=== PATIENT | female | born 1970 | race Caucasian/White ===

== ENCOUNTER 2022-07-23 16:05 | Outpatient (CLI) | payer MEDICARE ==
[2022-07-23 16:47] LABS: Hemoglobin 15.8 g/dL (12.0-15.5); Mean Corpuscular HGB CONC 34.2 g/dL (32.0-36.0); Mean Corpuscular Hemoglobin 33.9 pg (27.0-33.0); Mean Corpuscular Volume 99.1 fl (81.6-98.3); Mean Platelet Volume 10.6 fl (7.4-10.4); Platelet Count 241 10x3/uL (150-450); Red Blood Cell (RBC) Count 4.66 10x6/uL (3.90-5.03); White Blood Cell (WBC) Count 7.4 10x3/uL (3.5-10.5)
[2022-07-23 17:36] LABS: BHCG - Serum POSITIVE (NEGATIVE); Pregs Control Background? CLEAR/WHITE (CLR/WHITE); Pregs Control Bar Appear? YES (CONTROL BAR)
== END 2022-07-23 16:06 | disposition home or self-care (01) ==
LOC: CSHLAB 16:05
PROVIDERS: ATTEND Student in an Organized Health Care Education/Training Program
DX: Z01.812 Encounter for preprocedural laboratory examination (principal); N87.9 Dysplasia of cervix uteri, unspecified
CPT/HCPCS: 84703; 85027; 86850; 86900; 86901

== ENCOUNTER 2022-07-28 09:08 | Day surgery (SDC) | payer MEDICARE ==
[2022-07-23 12:22] VITALS: BMI 23.5
[2022-07-23 16:47] LABS: Hemoglobin 15.8 g/dL (12.0-15.5); Mean Corpuscular HGB CONC 34.2 g/dL (32.0-36.0); Mean Corpuscular Hemoglobin 33.9 pg (27.0-33.0); Mean Corpuscular Volume 99.1 fl (81.6-98.3); Mean Platelet Volume 10.6 fl (7.4-10.4); Platelet Count 241 10x3/uL (150-450); Red Blood Cell (RBC) Count 4.66 10x6/uL (3.90-5.03); White Blood Cell (WBC) Count 7.4 10x3/uL (3.5-10.5)
[2022-07-23 17:36] LABS: BHCG - Serum POSITIVE (NEGATIVE); Pregs Control Background? CLEAR/WHITE (CLR/WHITE); Pregs Control Bar Appear? YES (CONTROL BAR)
[2022-07-28] MEDS ORDERED: Dexmedetomidine 200 MCG/2 ML VIAL ONE (10:39)
[2022-07-28] MEDS ORDERED: Fentanyl 100 MCG/2 ML VIAL ONE (10:40)
[2022-07-28] MEDS ORDERED: PROPOFOL 20 ML ONE ×2 (10:40→12:08)
[2022-07-28] MEDS ORDERED: Dexamethasone 20 MG/5 ML VIAL ONE (10:43)
[2022-07-28] MEDS ORDERED: Ondansetron PF 4 MG/2 ML Vial ONE (10:43)
[2022-07-28] MEDS ORDERED: CEFAZOLIN 2 GM VIAL ONE (10:54)
[2022-07-28] MEDS ORDERED: Potassium Iodide Solution 14 ML BOT ONE (11:00)
[2022-07-28] MEDS ORDERED: ePHEDrine Sulfate 50 MG/10 ML VIAL ONE (12:00)
== END 2022-07-28 13:05 | disposition home or self-care (01) ==
LOC: CSHSDC 09:08
PROVIDERS: ATTEND Student in an Organized Health Care Education/Training Program
PROC: 0UBC7ZZ Excision of Cervix, Via Natural or Artificial Opening (ICD-10-PCS; principal; 2022-07-28)
DX: N87.9 Dysplasia of cervix uteri, unspecified (principal); F41.9 Anxiety disorder, unspecified; L29.3 Anogenital pruritus, unspecified; E53.8 Deficiency of other specified B group vitamins; F90.9 Attention-deficit hyperactivity disorder, unspecified type; K21.9 Gastro-esophageal reflux disease without esophagitis; Z79.84 Long term (current) use of oral hypoglycemic drugs; Z79.899 Other long term (current) drug therapy; Z88.5 Allergy status to narcotic agent; Z88.8 Allergy status to other drugs, medicaments and biological substances; Z87.891 Personal history of nicotine dependence
CPT/HCPCS: 57522; 84703; 85027; 86850; 86900; 86901; C1713; 88305; 88307; J1100; J2405; J2704; J3010

== ENCOUNTER 2023-01-18 10:43 | Emergency (ER) | payer OTHER, MEDICARE ==
[2023-01-18] MEDS ORDERED: Ondansetron ODT 4 MG TAB ONE (11:22)
[2023-01-18] MEDS ORDERED: HYDROcodone/Acetaminophen 5/325 mg Tablet ONE (11:23)
== END 2023-01-18 12:09 | disposition home or self-care (01) ==
LOC: CSHERS 10:43
DX: S52.501A Unspecified fracture of the lower end of right radius, initial encounter for closed fracture (principal); W01.0XXA Fall on same level from slipping, tripping and stumbling without subsequent striking against object, initial encounter
CPT/HCPCS: 29125; Q0162

== ENCOUNTER 2023-05-17 11:30 | Outpatient (CLI) | payer MEDICARE | END 2023-05-17 11:31 | disposition home or self-care (01) | LOC: CSHMAMMO 11:30 | PROVIDERS: ATTEND Internal Medicine Rheumatology | DX: M81.0 Age-related osteoporosis without current pathological fracture (principal); M85.852 Other specified disorders of bone density and structure, left thigh | CPT/HCPCS: 77080 ==

== ENCOUNTER 2024-12-18 15:12 | Outpatient (CLI) | payer MEDICARE | END 2024-12-18 15:13 | disposition home or self-care (01) | LOC: CSHRAD 15:12 | PROVIDERS: ATTEND Specialist | DX: Z87.891 Personal history of nicotine dependence (principal) | CPT/HCPCS: 71046 ==